=== PATIENT | male | born 1945 | race Caucasian/White ===

== ENCOUNTER 2018-02-19 18:10 | Emergency (ER) | payer MEDICARE, BC ==
[2018-02-19] MEDS ORDERED: Bacitracin Oint 1 GM U/D Packet TOP ONE (18:36)
[2018-02-19] MEDS ORDERED: Sodium Chloride 0.9% 10 ML Syringe FLUSH PRN (18:52)
--- NOTE | 2018-02-19 18:52 | EDM.PDOC ---
ED HPI GENERAL MEDICAL PROBLEM - General Chief Complaint: Skin Complaint Stated Complaint: FISH HOOK Time Seen by Provider: 02/19/18 18:44 Source of Information: Reports: Patient History Limitations: Reports: No Limitations - History of Present Illness INITIAL COMMENTS - FREE TEXT/NARRATIVE: Deandre presents today with complaints of fish hook prong x 2 to left index finger. 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 - Related Data Allergies Allergy/AdvReac Type Severity Reaction Status Date / Time clindamycin Allergy Rash Verified 02/19/18 18:43 Home Meds: Home Meds NK [No Known Home Meds] 02/19/18 [History] Past Medical History - Past Health History Medical/Surgical History: Denies Medical/Surgical History Social & Family History - Tobacco Use Smoking Status *Q: Never Smoker ED ROS GENERAL - Review of Systems Review Of Systems: See Below Constitutional: Denies: Fever, Chills, Malaise, Weakness HEENT: Reports: No Symptoms Respiratory: Denies: Shortness of Breath, Wheezing, Cough, Sputum Cardiovascular: Reports: No Symptoms Endocrine: Reports: No Symptoms GI/Abdominal: Denies: Abdominal Pain, Constipation, Diarrhea, Nausea, Vomiting : Reports: No Symptoms Musculoskeletal: Reports: Hand Pain, Joint Pain, Other (Chronic pain to bilateral shoulders, pain to right thumb for one to two days) Skin: Reports: Erythema, Wound, Change in Color, Other (erythema, edema and red streak up right arm. ) Neurological: Reports: No Symptoms Psychiatric: Reports: No Symptoms Hematologic/Lymphatic: Reports: No Symptoms Immunologic: Reports: No Symptoms ED EXAM, SKIN/RASH Exam: See Below Text/Narrative:: Deandre is an alert and oriented 72 year old male presenting with complaints of fish hook prong x 2 to left index finger today and pain to right thumb for one to Exam Limited By: No Limitations General Appearance: Alert, WD/WN, Mild Distress Eye Exam: Bilateral Eye: EOMI, Normal Inspection, PERRL Ears: Normal External Exam, Normal Canal, Hearing Grossly Normal, Normal TMs Nose: Normal Inspection, Normal Mucosa, No Blood Throat/Mouth: Normal Inspection, Normal Lips, Normal Gums, Normal Oropharynx, Normal Voice, No Airway Compromise Head: Atraumatic, Normocephalic Neck: Normal Inspection, Supple, Non-Tender, Full Range of Motion. No: Lymphadenopathy (R), Lymphadenopathy (L) Respiratory/Chest: No Respiratory Distress, Lungs Clear, Normal Breath Sounds, No Accessory Muscle Use, Chest Non-Tender Cardiovascular: Normal Peripheral Pulses, Regular Rate, Rhythm, No Edema, No Murmur, No Rub Peripheral Pulses: 2+: Radial (L), Radial (R) GI/Abdominal: Normal Bowel Sounds, Soft, Non-Tender, No Distention Back Exam: Normal Inspection, Full Range of Motion. No: CVA Tenderness (R), CVA Tenderness (L) Extremities: Normal Inspection, Normal Range of Motion, Non-Tender, No Pedal Edema, Normal Capillary Refill, Other (With exception of fish hooks to left index finger and eythema, edema right thumb. ) Neurological: Alert, Oriented, CN II-XII Intact, Normal Cognition, Normal Gait, No Motor/Sensory Deficits Psychiatric: Normal Affect, Normal Mood Skin: Dry, Erythema, Wound/Incision, Other (Puncture wound to right thumb pad) Location, Skin: Other (Righ thumb erythema, edema. Left index finger fish hook , red streak to medial aspect of right forearm to elbow from right thumb) Associated features: Warmth, Tenderness, Swelling ED SKIN PROCEDURES - Foreign Body Removal Indication:: Fish hook prong x 2 to left index finger Consent Obtained:: Patient Performing Doctor:: Gisele Barron Anesthesia Type: Local Findings:: Left index finger cleansed with soap and water. 2 ml 1% lidocaine plain infiltrated to area, prongs x 2 removed without difficulty, patient tolerated well. Bacitracin ointment applied. Course - Vital Signs Last Recorded V/S: Last Vital Signs Temp 36.4 C 02/19/18 18:52 Pulse 80 02/19/18 18:52 Resp 16 02/19/18 18:52 BP 136/80 02/19/18 18:52 Pulse Ox 96 02/19/18 18:52 - Orders/Labs/Meds Orders: Active Orders 24 hr Category Date Time Status Vaccines to be Administered [RC] PER UNIT ROUTINE Care 02/19/18 19:41 Active Fingers Thumb Rt F5 [CR] Stat Exams 02/19/18 18:53 Ordered Saline Lock Insert [OM.PC] Routine Oth 02/19/18 18:52 Ordered Labs: Laboratory Tests 02/19/18 02/19/18 Range/Units 18:52 18:52 WBC 9.1 (4.5-11.0) K/uL RBC 4.66 (4.30-5.90) M/uL Hgb 14.4 (12.0-15.0) g/dL Hct 42.3 (40.0-54.0) % MCV 91 (80-98) fL MCH 31 (27-31) pg MCHC 34 (32-36) % Plt Count 233 (150-400) K/uL Neut % (Auto) 83 H (36-66) % Lymph % (Auto) 8 L (24-44) % [place] % (Auto) 8 H (2-6) % Eos % (Auto) 0 L (2-4) % Baso % (Auto) 0 (0-1) % Sodium 139 L (140-148) mmol/L Potassium 4.0 (3.6-5.2) mmol/L Chloride 104 (100-108) mmol/L Carbon Dioxide 24 (21-32) mmol/L Anion Gap 15.0 H (5.0-14.0) mmol/L BUN 34 H (7-18) mg/dL Creatinine 1.2 (0.8-1.3) mg/dL Est Cr Clr Drug Dosing 57.28 mL/min Estimated GFR (MDRD) 60 (>60) Glucose 108 H (74-106) mg/dL Calcium 8.4 L (8.5-10.1) mg/dL Meds: Medications Discontinued Medications Generic Name Dose Route Start Last Admin Trade Name Herrera PRN Reason Stop Dose Admin Bacitracin 1 dose 02/19/18 18:36 02/19/18 18:40 Bacitracin Oint 1 Gm TOP 02/19/18 18:37 1 dose ONETIME ONE Administration Diphtheria/Tetanus/Acell Pertussis 0.5 ml 02/19/18 19:41 02/19/18 19:55 Adacel IM 02/19/18 19:42 0.5 ml .ONCE ONE Administration Hydromorphone HCl 0.5 mg 02/19/18 19:21 02/19/18 19:34 Dilaudid IVPUSH 02/19/18 19:22 0.5 mg ONETIME ONE Administration Ceftriaxone Sodium 1 gm/ 50 mls @ 100 mls/hr 05/20/18 19:21 02/19/18 19:48 Sodium Chloride IV 02/19/18 19:50 100 mls/hr ONETIME ONE Administration Sodium Chloride 1,000 mls @ 500 mls/hr 02/19/18 19:30 02/19/18 19:35 Normal Saline IV 500 mls/hr ASDIRECTED BEATRICE Administration Lidocaine HCl 5 ml 02/19/18 18:36 02/19/18 18:40 Xylocaine-Mpf 1% INJECT 02/19/18 18:37 5 ml ONETIME ONE Administration Sodium Chloride 10 ml 02/19/18 18:52 02/19/18 19:40 Saline Flush FLUSH 10 ml ASDIRECTED PRN Administration Keep Vein Open Trimethoprim/Sulfamethoxazole 1 tab 02/19/18 19:48 02/19/18 20:01 Septra Ds PO 02/19/18 19:49 1 tab ONETIME ONE Administration - Radiology Interpretation Free Text/Narrative:: X-ray of right thumb reviewed, wet read. Images not able to be viewed on PACS, reviewed on Portable machine. No fractures identified. Unsure of small foreign body to distal phalanx right thumb - Re-Assessments/Exams Free Text/Narrative Re-Assessment/Exam: 02/19/18 19:20 Patient case, x-ray reviewed with Dr. Will. She is in agreement with plan. Deandre will be given IV normal saline, ceftriaxone 1 gram IV and dilaudid 0.5mg IV. He will be discharged to home with oral bactrim and follow up with his primary provider tomorrow or Tuesday for a recheck. Departure - Departure Time of Disposition: 20:40 Disposition: Home, Self-Care Clinical Impression: Fish hook injury of finger of left hand, Cellulitis of right thumb - Discharge Information Instructions: Cellulitis, Adult Referrals: PCP,None [Primary Care Provider] - Forms: ED Department Discharge Additional Instructions: You have been evaluated and treated for fish hook prong x 2 to left index finger and cellulitis of the right thumb. You were given Ceftriaxone 1 gram IV along with IV fluids. Take bactrim DS 1 tablet by mouth twice per day for 10 days. Take ibuprofen 600 mg by mouth three times a day for pain as needed. Take acetaminophen 1000mg by mouth three times a day for pain as needed. It would be best for you to return to ER or primary provider tomorrow for a recheck. Follow up with your primary provider/[facility] Tuesday for a recheck. Report to the nearest emergency room with worsening of pain, redness, red streak , fever, chills, nausea or other concerns. - My Orders Last 24 Hours: My Active Orders 02/19/18 18:52 Saline Lock Insert [OM.PC] Routine 02/19/18 18:53 Fingers Thumb Rt F5 [CR] Stat 02/19/18 19:41 Vaccines to be Administered [RC] PER UNIT ROUTINE - Assessment/Plan Last 24 Hours: My Active Orders 02/19/18 18:52 Saline Lock Insert [OM.PC] Routine 02/19/18 18:53 Fingers Thumb Rt F5 [CR] Stat 02/19/18 19:41 Vaccines to be Administered [RC] PER UNIT ROUTINE Assessment:: Fish hook injury of finger of left hand Cellulitis right thumb Ceftriaxone 1 gram IV Normal saline IV Hard copy script for bactrim DS. Plan: Patient evaluated and treated for fish hook prong x 2 to left index finger and cellulitis of the right thumb. He were given Ceftriaxone 1 gram IV along with IV fluids. Take bactrim DS 1 tablet by mouth twice per day for 10 days. Take ibuprofen 600 mg by mouth three times a day for pain as needed. Take acetaminophen 1000mg by mouth three times a day for pain as needed. It would be best to return to ER or primary provider tomorrow for a recheck. Follow up with primary provider/[facility] Tuesday for a recheck. Report to the nearest emergency room with worsening of pain, redness, red streak , fever, chills, nausea or other concerns. Education provided to patient on importance of follow up to prevent further spread of infection as directed. He verbalized understanding.
[2018-02-19] MEDS ORDERED: cefTRIAXone 1 GM in Sodium Chloride 0.9% 50 ML IV ONE (19:21)
[2018-02-19] MEDS ORDERED: HYDROmorphone 0.5 MG/0.5 ML Syringe IVPUSH ONE (19:21)
[2018-02-19] MEDS ORDERED: Sodium Chloride 0.9% 1,000 ML IV SCH (19:30)
[2018-02-19] MEDS ORDERED: Diphtheria,Pertussis(Acell),Tetanus Vaccine 0.5 ML SDV IM ONE (19:41)
[2018-02-19] MEDS ORDERED: Sulfamethoxazole/Trimethoprim 800-160 MG Tab PO ONE (19:48)
--- NOTE | 2018-02-20 11:12 | CR ---
Fingers Thumb Rt F5 INDICATION: pain, erythema, possible foreign object - thorn FINDINGS: 2 mm radiopaque density in the soft tissues of the volar aspect of the distal phalanx of th e first digit. This could represent a foreign body. Exam otherwise unremarkable.
== END 2018-02-19 20:56 | disposition home or self-care (01) ==
LOC: JP.ED 18:10
DX: S60.451A Superficial foreign body of left index finger, initial encounter (principal); Z88.1 Allergy status to other antibiotic agents; W45.8XXA Other foreign body or object entering through skin, initial encounter
CPT/HCPCS: 36415; 73140; 80048; 85025; 90471; 90715; 96361; 96365; 96375; 99284; A9270; J0696; J1170; J7040; J7050